=== PATIENT | male | born 1980 | race Caucasian/White ===

== ENCOUNTER 2018-08-10 08:33 | Emergency (ER) | payer SELFPAY ==
[~2018-08-10] VITALS: Ht 165.1 cm; Wt 77.1 kg
[2018-08-10 08:40] VITALS: BP 129/67
[2018-08-10] MEDS ORDERED: AMOX875T PO (09:28)
--- NOTE | 2018-08-10 09:28 | PHYS DOC ---
Past Medical History Past Medical History: No Pertinent History Past Surgical History: No Surgical History Alcohol Use: None Drug Use: None Adult General Chief Complaint Chief Complaint: DENTAL PROBLEM HPI HPI Patient is a 38 year old male who presents complaining of mild left lower gum dental pain that began yesterday. Patient states he believes he has a dental infection and would like to be started on antibiotics. He states his significant other scheduled him for dental appointment in a couple days. Patient denies any fever or trismus. Review of Systems Review of Systems Constitutional: Denies fever or chills HENT: Reports left lower gum dental pain. Musculoskeletal: Denies back pain or joint pain [] Integument: Denies rash or skin lesions [] Neurologic: Denies headache, focal weakness or sensory changes [] All other systems were reviewed and found to be within normal limits, except as documented in this note. Allergies Allergies Allergies Coded Allergies Type Severity Reaction Last Updated Verified No Known Drug Allergies 08/10/18 No Physical Exam Physical Exam Constitutional: Well developed, well nourished, no acute distress, non-toxic appearance. [] HENT: Normocephalic, atraumatic, bilateral external ears normal, oropharynx moist, no oral exudates, nose normal. [] Patient's molars and premolars on the left and right lower gums are broken and decayed. The gums are erythematous and swollen. No drainage. Skin: Warm, dry, no erythema, no rash. [] Back: No tenderness, no CVA tenderness. [] Extremities: No tenderness, no cyanosis, no clubbing, ROM intact, no edema. [] Neurologic: Alert and oriented X 3, normal motor function, normal sensory function, no focal deficits noted. [] Psychologic: Affect normal, judgement normal, mood normal. [] Current Patient Data Vital Signs Vital Signs Date Time Temp Pulse Resp B/P (MAP) Pulse Ox O2 Delivery O2 Flow Rate FiO2 08/10/18 08:40 97.7 71 20 129/67 (87) 96 Room Air 97.7 EKG EKG [] Radiology/Procedures Radiology/Procedures [] Course & Med Decision Making Course & Med Decision Making Pertinent Labs and Imaging studies reviewed. (See chart for details) This is a 38-year-old male patient who has infected dental caries, will be discharged with amoxicillin for 10 days. He has an appointment with his own dentist. Rafa Disclaimer Rafa Disclaimer This electronic medical record was generated, in whole or in part, using a voice recognition dictation system. Departure Departure Impression: Primary Impression: Infected dental caries Disposition: HOME, SELF-CARE Condition: STABLE Patient Instructions: Dental Caries Additional Instructions: You were seen in the ED for dental infection. Take the prescribed antibiotics until completed. Follow-up with your dentist in the next 1 week. Scripts Amoxicillin (AMOXICILLIN) 875 Mg Tablet 1 TAB PO BID, #20 TAB Prov: JEFF HANNAH APRN 08/10/18 JEFF HANNAH APRN Aug 10, 2018 09:28
== END 2018-08-10 09:51 | disposition home or self-care (01) ==
LOC: ER 08:33
DX: K02.9 Dental caries, unspecified (principal)
CPT/HCPCS: 99283

== ENCOUNTER 2019-01-14 14:22 | Emergency (ER) | payer OTHER ==
[~2019-01-14] VITALS: Ht 165.1 cm; Wt 77.1 kg
[~2019-01-14 14:22] MED LIST: AMOX875T PO
[2019-01-14 14:35] VITALS: BP 119/65
[2019-01-14] MEDS ORDERED: METH4TAB2 PO (15:03)
[2019-01-14] MEDS ORDERED: HYDR-3164 PO (15:03)
[2019-01-14] MEDS ORDERED: ORPH100T PO (15:03)
--- NOTE | 2019-01-14 15:04 | PHYS DOC ---
Past Medical History Past Medical History: No Pertinent History Past Surgical History: No Surgical History Alcohol Use: None Drug Use: None Adult General Chief Complaint Chief Complaint: UPPER EXTREMITY PAIN HPI HPI Patient is a 38 year old Male who presents with chronic right shoulder pain. Patient states some days he will wake up and is stiff and has a sharp shooting throbbing pain that goes from the shoulder down to his elbow but it usually goes away around half later today. 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 Patient states he never got the follow-up that he needed on his shoulder with a specialist. Today patient states he woke up with right shoulder throbbing shooting pain and stiffness that goes from the right trapezius to the shoulder and down into his upper arm. Patient rates his pain a 7 out of 10. Patient states he recently moved [place] and needs a primary care doctor. Review of Systems Review of Systems Constitutional: Denies fever or chills [] Eyes: Denies change in visual acuity, redness, or eye pain [] HENT: Denies nasal congestion or sore throat [] Respiratory: Denies cough or shortness of breath [] Cardiovascular: No additional information not addressed in HPI [] GI: Denies abdominal pain, nausea, vomiting, bloody stools or diarrhea [] : Denies dysuria or hematuria [] Musculoskeletal: Denies back pain. Right shoulder joint pain [] Integument: Denies rash or skin lesions [] Neurologic: Denies headache, focal weakness or sensory changes [] Endocrine: Denies polyuria or polydipsia [] All other systems were reviewed and found to be within normal limits, except as documented in this note. Allergies Allergies Allergies Coded Allergies Type Severity Reaction Last Updated Verified No Known Drug Allergies 08/10/18 No Physical Exam Physical Exam Constitutional: Well developed, well nourished, no acute distress, non-toxic appearance. [] HENT: Normocephalic, atraumatic, bilateral external ears normal, oropharynx moist, no oral exudates, nose normal. [] Eyes: PERRLA, EOMI, conjunctiva normal, no discharge. [] Neck: Normal range of motion, no tenderness, supple, no stridor. [] Cardiovascular:Heart rate regular rhythm, no murmur [] Lungs & Thorax: Bilateral breath sounds clear to auscultation [] Abdomen: Bowel sounds normal, soft, no tenderness, no masses, no pulsatile m asses. [] Skin: Warm, dry, no erythema, no rash. [] Back: No tenderness, no CVA tenderness. [] Extremities: No tenderness, no cyanosis, no clubbing, Right shoulder ROM not intact, no edema. [] Neurologic: Alert and oriented X 3, normal motor function, normal sensory function, no focal deficits noted. [] Psychologic: Affect normal, judgement normal, mood normal. [] Current Patient Data Vital Signs Vital Signs Date Time Temp Pulse Resp B/P (MAP) Pulse Ox O2 Delivery O2 Flow Rate FiO2 01/14/19 14:35 98.0 47 16 119/65 (83) 99 Room Air 98.0 EKG EKG [] Radiology/Procedures Radiology/Procedures [] Course & Med Decision Making Course & Med Decision Making Patient is a 38 year old Male who presents with chronic right shoulder pain. Patient states some days he will wake up and is stiff and has a sharp shooting throbbing pain that goes from the shoulder down to his elbow but it usually goes away around half later today. 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 Patient states he never got the follow-up that he needed on his shoulder with a specialist. Today patient states he woke up with right shoulder throbbing shooting pain and stiffness that goes from the right trapezius to the shoulder and down into his upper arm. Patient rates his pain a 7 out of 10. Patient states he recently moved [place] and needs a primary care doctor. Skin pink warm and dry. Alert and oriented. There is no swelling to the right extremity. Range of motion right shoulder is to 45� but cannot go shoulder height in any direction. Patient states it was slight tenderness with palpation to the front of the shoulder. There is no deformity or palpable masses in the shoulder. Patient denies new injury. Bilateral shoulders are even and equal Heights. Patient states he feels like his trapezius muscle is tight and spasming. The patient states that this is not new pain this is the same pain and symptoms that he has felt off and on for the last 5+ years but only differences today the pain is not subsiding as it usually does. Patient is given muscle relaxers, Medrol Dosepak and pain medication. Patient was also given a pamphlet to find a primary care doctor. Rafa Disclaimer Rafa Disclaimer This electronic medical record was generated, in whole or in part, using a voice recognition dictation system. Departure Departure Impression: Primary Impression: Shoulder pain, right Disposition: 01 HOME, SELF-CARE Condition: STABLE Referrals: NO PCP (PCP) Patient Instructions: Shoulder Pain Additional Instructions: Follow-up with primary care doctor. Try using a heating pad. Take medication as prescribed. Scripts Orphenadrine Citrate (ORPHENADRINE CITRATE) 100 Mg Tablet.er 1 TAB PO BID, #20 TAB 1 Refill Prov: ALEJA ROCHA 01/14/19 Hydrocodone/Apap 5-325 (NORCO 5-325 TABLET) 1 Each Tablet 1 TAB PO PRN Q6HRS PRN for PAIN, #10 TAB 0 Refills Prov: ALEJA ROCHA 01/14/19 Methylprednisolone (MEDROL) 4 Mg Tab.ds.pk 1 PKG PO UD, #1 PKG Prov: ALEJA ROCHA 01/14/19 Problem Qualifiers Primary Impression: Shoulder pain, right Chronicity: chronic Qualified Codes: M25.511 - Pain in right shoulder; G89.29 - Other chronic pain ALEJA ROCHA Jan 14, 2019 15:04
== END 2019-01-14 15:12 | disposition home or self-care (01) ==
LOC: ER 14:22
DX: G89.29 Other chronic pain (principal); M25.511 Pain in right shoulder
CPT/HCPCS: 99283

== ENCOUNTER 2021-01-17 06:33 | Emergency (ER) | payer OTHER ==
[~2021-01-17] VITALS: Ht 165.1 cm; Wt 80.0 kg
[~2021-01-17 06:33] MED LIST changes: +HYDR-3164 PO; +METH4TAB2 PO; +ORPH100T PO
[2021-01-17 07:46] VITALS: BP 137/98
[2021-01-17] MEDS ORDERED: KETOROLAC 60 MG/2 ML VIAL. IM ONE (08:00)
[2021-01-17] MEDS ORDERED: methylPREDNISolone SOD SUCC PF 125 MG/2 ML VIAL. IM ONE (08:00)
[2021-01-17] MEDS ORDERED: PRED20TA PO (08:08)
[2021-01-17] MEDS ORDERED: NAPR-682 PO (08:08)
--- NOTE | 2021-01-17 08:08 | PHYS DOC ---
Past Medical History Past Medical History: No Pertinent History Additional Past Medical Histor: Pt denies. Past Surgical History: No Surgical History Smoking Status: Current Every Day Smoker Alcohol Use: None Drug Use: None General Adult EDM: Chief Complaint: UPPER EXTREMITY PAIN HPI: HPI: Patient is a 40 year old male who present to ER for evaluation of right shoulder pain. Patient has chronic right shoulder rotator cuff problem. 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 Patient is scheduled to see his physical therapist on Monday for evaluation. Patient denies any weakness or numbness in her right shoulder. Review of Systems: Review of Systems: Constitutional: Denies fever or chills. [] Eyes: Denies change in visual acuity. [] HENT: Denies nasal congestion or sore throat. [] Respiratory: Denies cough or shortness of breath. [] Cardiovascular: Denies chest pain or edema. [] GI: Denies abdominal pain, nausea, vomiting, bloody stools or diarrhea. [] : Denies dysuria. [] Musculoskeletal: Denies back pain or joint pain. [] Integument: Denies rash. [] Neurologic: Denies headache, focal weakness or sensory changes. [] Endocrine: Denies polyuria or polydipsia. [] Lymphatic: Denies swollen glands. [] Psychiatric: Denies depression or anxiety. [] Heart Score: C/O Chest Pain: N/A Risk Factors: Risk Factors: DM, Current or recent (<one month) smoker, HTN, HLP, family history of CAD, obesity. Risk Scores: Score 0 - 3: 2.5% MACE over next 6 weeks - Discharge Home Score 4 - 6: 20.3% MACE over next 6 weeks - Admit for Clinical Observation Score 7 - 10: 72.7% MACE over next 6 weeks - Early Invasive Strategies Current Medications: Current Medications Medications (Trade) Dose Ordered Sig/Elisa Start Time Stop Time Status Last Admin Dose Admin Ketorolac Tromethamine (Toradol Im) 60 mg 1X ONCE 01/17/21 08:00 01/17/21 08:04 DC Methylprednisolone Sodium Succinate (SOLU-Medrol 125MG VIAL) 125 mg 1X ONCE 01/17/21 08:00 01/17/21 08:04 DC Allergies: Allergies: Allergies Coded Allergies Type Severity Reaction Last Updated Verified No Known Drug Allergies 08/10/18 No Physical Exam: PE: Constitutional: Well developed, well nourished, no acute distress, non-toxic appearance. [] HENT: Normocephalic, atraumatic, bilateral external ears normal, oropharynx moist, no oral exudates, nose normal. [] Eyes: PERRLA, EOMI, conjunctiva normal, no discharge. [] Neck: Normal range of motion, no tenderness, supple, no stridor. [] Cardiovascular:Heart rate regular rhythm, no murmur [] Lungs & Thorax: Bilateral breath sounds clear to auscultation [] Abdomen: Bowel sounds normal, soft, no tenderness, no masses, no pulsatile masses. [] Skin: Warm, dry, no erythema, no rash. [] Back: No tenderness, no CVA tenderness. [] Extremities: Right shoulder with full range of motion, there is some tenderness to palpation at the AC joint area, no cyanosis, no clubbing, ROM intact, no edema. [] Neurologic: Alert and oriented X 3, normal motor function, normal sensory function, no focal deficits noted. [] Psychologic: Affect normal, judgement normal, mood normal. [] Current Patient Data: Vital Signs: Vital Signs Date Time Temp Pulse Resp B/P (MAP) Pulse Ox O2 Delivery O2 Flow Rate FiO2 01/17/21 07:46 98.1 63 16 137/98 (83) 97 Room Air 98.1 EKG: EKG: [] Radiology/Procedures: Radiology/Procedures: [] Course & Med Decision Making: Course & Med Decision Making Pertinent Labs and Imaging studies reviewed. (See chart for details) [] Dragon Disclaimer: Dragon Disclaimer: This electronic medical record was generated, in whole or in part, using a voice recognition dictation system. Departure Departure Impression: Primary Impression: Shoulder pain, right Disposition: HOME / SELF CARE / HOMELESS Condition: STABLE Referrals: NO PCP (PCP) Follow up with your physical therapist as scheduled next week Patient Instructions: Shoulder Pain Additional Instructions: Thank you for visiting our Emergency Department. We appreciate you trusting us with your care. If any additional problems come up don't hesitate to return to visit us. Please follow up with your primary care provider so they can plan additional care if needed and know about the problem that you had. If symptoms worsen come back to the Emergency Department. Any concerning symptoms that start such as chest pain, shortness of air, weakness or numbness on one side of the body, running high fevers or any other concerning symptoms return to the ER. Scripts Prednisone (PREDNISONE) 20 Mg Tablet 1 TAB PO DAILY for 10 Days, #10 TAB Prov: RYLIE ALMANZAR DO 01/17/21 Naproxen Sodium (ANAPROX DS) 550 Mg Tablet 1 TAB PO BID PRN for PAIN for 15 Days, #30 TAB 0 Refills Prov: RYLIE ALMANZAR DO 01/17/21 RYLIE ALMANZAR DO Jan 17, 2021 08:08
== END 2021-01-17 09:09 | disposition home or self-care (01) ==
LOC: ER 06:33
DX: M25.511 Pain in right shoulder (principal); F17.200 Nicotine dependence, unspecified, uncomplicated
CPT/HCPCS: 96372; 99284; J1885; J2930

== ENCOUNTER → 2021-04-22 | Outpatient (CLI) | payer OTHER ==
[~2021-04-22] MED LIST changes: +NAPR-682 PO; +PRED20TA PO
--- NOTE | 2021-04-22 14:13 | RAD ---
EXAM: AP, lateral and lumbosacral spot views of the lumbar spine DATE: 04/22/2021 9:29 AM INDICATION: Reason: LOW BACK PAIN / Spl. Instructions: / History: COMPARISON: No Prior FINDINGS: Vertebral body heights are preserved. Disc heights are preserved. No spondylolisthesis. Mild facet de generative change. No acute fracture. IMPRESSION: 1. Negative acute fracture or subluxation. Electronically signed by: Orestes Sarabia MD (04/22/2021 2:10 PM) [id number]
== END ==
LOC: RAD 09:08
PROVIDERS: ATTEND Family Medicine
DX: Z02.71 Encounter for disability determination (principal); M47.816 Spondylosis without myelopathy or radiculopathy, lumbar region
CPT/HCPCS: 72100